=== PATIENT | female | born 2000 | race Caucasian/White ===

== ENCOUNTER → 2023-02-15 23:29 | Outpatient (CLI) | payer BC, SELFPAY ==
[2023-02-15 18:44] LABS: Alanine Aminotransferase 19 U/L (12-78); Albumin Level 4.7 g/dl (3.5-5.0); Albumin/Globulin Ratio 1.8 (1.1-1.8); Alkaline Phosphatase 30 U/L (38-126); Aspartate Amino Transferase 25 U/L (14-36); Bilirubin,Total 0.4 mg/dl (0.2-1.3); Blood Urea Nitrogen 12 mg/dl (7-17); Calcium 9.5 mg/dl (8.4-10.2); Carbon Dioxide 26 mmol/L (22.0-30.0); Chloride 105 mmol/L (98-107); Chol/HDL Ratio 4.4 (1-3.5); Cholesterol 240 mg/dl (140-200); Estimated Glomerular Filt Rate 88 ml/min (>60); GFR (African American) 107 ML/MIN (>60); Globulin 2.6 g/dL (1.3-3.2); Glucose 85 mg/dl (74-100); HDL Cholesterol 55 mg/dl (40-60); Total Protein,Serum 7.3 g/dl (6.3-8.2); Triglycerides 111 mg/dl (30-150); VLDL Cholesterol 22 mg/dL (0-40)
[2023-02-15 18:45] LABS: Sodium 136 mmol/L (136-145)
[2023-02-15 18:46] LABS: Basophils # 0.1 K/mm3 (0-0.2); Basophils % 0.8 % (0.1-2.0); Eosinophils # 0.1 K/mm3 (0.0-0.4); Hematocrit 46.6 % (37.0-47.0); Hemoglobin 15.2 g/dL (12.2-16.2); Lymphocytes # 2.6 K/mm3 (0.7-4.5); Lymphocytes % 39.7 % (10-50); Mean Corpuscular HGB Conc 32.7 g/dL (31.8-35.4); Mean Corpuscular Hemoglobin 29.8 pg (27.0-31.2); Mean Corpuscular Volume 91.2 fl (81-99); Mean Platelet Volume 8.8 fl (7.4-10.4); Monocytes # 0.5 K/mm3 (0.1-1.0); Monocytes % 8.1 % (1.7-9.3); Neutrophils # 3.3 K/mm3 (1.8-7.8); Neutrophils % 49.5 % (37.0-80.0); Platelet Count 352 K/mm3 (142-424); Red Blood Count 5.11 M/mm3 (4.20-5.40); Red Cell Distribution Width 12.9 % (11.5-17.5); White Blood Count 6.7 K/mm3 (4.8-10.8)
[2023-02-15 18:47] LABS: HCG Qualitative, Serum Negative (Negative)
[2023-02-15 19:04] LABS: 25-OH Vitamin D, Total 39.7 ng/mL (30-100)
[2023-02-15 19:08] LABS: C-Reactive Protein < 0.3 mg/L (0-4)
[2023-02-15 19:14] LABS: Thyroid Stimulating Hormone 0.51 uIU/mL (0.465-4.68)
[2023-02-15 19:26] LABS: Hemoglobin A1C 5.4 % (4.0-6.0)
[2023-02-15 19:29] LABS: Erythrocyte Sedimentation Rate 16 mm/hr (0-20)
[2023-02-15 19:33] LABS: Vitamin B12 762 pg/mL (239-931)
== END ==
PROVIDERS: PCP Nurse Practitioner; Visit Provider Nurse Practitioner
DX: R53.83 Other fatigue (principal); Z79.899 Other long term (current) drug therapy
CPT/HCPCS: 80053; 80061; 82306; 82607; 83036; 84443; 84703; 85025; 85651; 86140

== ENCOUNTER 2023-09-06 13:48 | Outpatient (CLI) | payer BC, SELFPAY ==
[2023-09-06 18:24] LABS: Influenza A, PCR Not Detected (NotDetected); Influenza B, PCR Not Detected (NotDetected)
[2023-09-06 20:07] LABS: Coronavirus 19, PCR Detected (NotDetected)
== END 2023-09-06 23:59 | disposition home or self-care (01) ==
LOC: LAB.DROPOF 09-07 13:49
PROVIDERS: PCP Nurse Practitioner; Visit Provider Nurse Practitioner
DX: J06.9 Acute upper respiratory infection, unspecified (principal)
CPT/HCPCS: 87636